=== PATIENT | male | born 2000 | race Hispanic/Latino ===

== ENCOUNTER 2021-12-31 17:56 | Emergency (ER) | payer OTHER ==
[~2021-12-31] VITALS: Ht 182.9 cm; Wt 80.7 kg
[2021-12-31] MEDS ORDERED: TETANUS/DIPHTHERIA TOX ADULT 0.5 ML SYR IM ONE (18:45)
== END 2021-12-31 20:35 | disposition home or self-care (01) ==
LOC: ER 20:31
DX: S61.246A Puncture wound with foreign body of right little finger without damage to nail, initial encounter (principal); W29.4XXA Contact with nail gun, initial encounter; Y92.89 Other specified places as the place of occurrence of the external cause
CPT/HCPCS: 90471; 90714; 99283